=== PATIENT | male | born 1995 | race American Indian/Alaskan Native ===

== ENCOUNTER 2017-07-06 19:31 | Emergency (ER) | payer OTHER ==
[2017-07-06 19:39] VITALS: BP 138/80
[2017-07-06] MEDS ORDERED: TORADOL IM ONE (19:55)
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
--- NOTE | 2017-07-06 21:13 | XRay Report ---
FINAL REPORT EXAM: XR SPINE LUMBOSACRAL 2-3V HISTORY: BACK INJURY TECHNIQUE: Lumbar spine three views PRIORS: None. FINDINGS: There is acute fracture through the superior aspect of the L2 vertebral body. There is cortical disruption anteriorly there is minimal loss height centrally. Posterior margin appears intact. No evidence for spondylolisthesis. Posterior elements appear intact Remaining levels are normal in height and alignment. Disc spaces are within normal limits. SI joints are unremarkable. IMPRESSION: Acute fracture of the superior L2 vertebral body. Minimal loss of height. No evidence for retropulsion.
[2017-07-06] MEDS ORDERED: MORPHINE IM ONE (21:20)
[2017-07-06] MEDS ORDERED: ZOFRAN IM ONE (21:20)
== END 2017-07-06 22:25 | disposition home or self-care (01) ==
LOC: ED 19:31
DX: S32.020A Wedge compression fracture of second lumbar vertebra, initial encounter for closed fracture (principal); V89.2XXA Person injured in unspecified motor-vehicle accident, traffic, initial encounter; Y93.89 Activity, other specified; Y92.89 Other specified places as the place of occurrence of the external cause; Y99.8 Other external cause status
CPT/HCPCS: 72100; 96372; 99283; J1885; J2270; J2405